=== PATIENT | female | born 1985 | race Caucasian/White ===

== ENCOUNTER 2016-10-16 19:04 | Emergency (ER) | payer OTHER ==
[2016-10-16 19:50] LABS: HEMOGLOBIN 12.2 gm/dl (12.3-15.3); RED BLOOD COUNT 4.94 M/UL (4.00-5.10); WHITE BLOOD COUNT 8.1 K/UL (4.5-11.0)
[2016-10-16 20:20] LABS: BUN/CREATININE RATIO 8 (0-10)
== END 2016-10-16 21:35 | disposition home or self-care (01) ==
LOC: ER1 19:04
PROVIDERS: Emergency Medicine
DX: R20.0 Anesthesia of skin (principal); R20.2 Paresthesia of skin; Z90.89 Acquired absence of other organs
CPT/HCPCS: 36415; 80053; 83735; 84443; 84484; 85025; 96374; 99284; J0610

== ENCOUNTER 2016-11-01 07:15 | Emergency (ER) | payer OTHER ==
[2016-11-01 08:48] LABS: HEMOGLOBIN 10.9 gm/dl (12.3-15.3); RED BLOOD COUNT 4.27 M/UL (4.00-5.10); WHITE BLOOD COUNT 7.4 K/UL (4.5-11.0)
[2016-11-01 09:09] LABS: BUN/CREATININE RATIO 18 (0-10)
== END 2016-11-01 10:54 | disposition home or self-care (01) ==
LOC: ER1 07:15
PROVIDERS: Physician Assistant
DX: R10.9 Unspecified abdominal pain (principal); Z88.1 Allergy status to other antibiotic agents; Z88.0 Allergy status to penicillin
CPT/HCPCS: 36415; 80053; 81001; 82150; 83690; 84703; 85025; 96374; 96375; 99284; J2270; J2405; J7050; Q9962